=== PATIENT | male | born 1965 ===

== ENCOUNTER 2021-05-11 14:22 | Emergency (ER) | payer OTHER | END 2021-05-11 14:50 | disposition left against medical advice (07) | LOC: DL.ED 14:22 | DX: Z53.21 Procedure and treatment not carried out due to patient leaving prior to being seen by health care provider (principal) ==

== ENCOUNTER 2021-05-18 11:53 | Emergency (ER) | payer OTHER ==
--- NOTE | 2021-05-18 13:02 | EDM.PDOC ---
ED HPI GENERAL MEDICAL PROBLEM - General Chief Complaint: General Stated Complaint: MENTAL HEALTH ISSUES Time Seen by Provider: 05/18/21 12:45 Source of Information: Reports: Patient, RN, RN Notes Reviewed History Limitations: Reports: Uncooperative - History of Present Illness INITIAL COMMENTS - FREE TEXT/NARRATIVE: Darin is a 55 y/o male with a history of PTSD who presents to the ED via personal vehicle at the request of Mariya, social science professor at [facility], for mental health needs. The patient has been pre-approved for acceptance to the [facility] in [place] for psychiatric evaluation and treatment. He denies active suicidality, but displays passive suicidal gestures. He has stopped taking his medications and has refused intervention of a unruptured cer ebral aneurysm; he underwent angiogram with an Dr. Monterroso, interventional neurologist at [facility], on 05/13/21 who recommended coiling. The patient states his PTSD has been "pinging" over the past few days due to the 9 year anniversary of his mothers who passed on 05/16/12. He notes he drinks large volumes of alcohol as frequently as possible, he is unwilling to state when his last drink of alcohol was. Head Pain Score (Numeric/FACES): 10 - Related Data Allergies Allergy/AdvReac Type Severity Reaction Status Date / Time enviromental Allergy Sneezing Uncoded 05/11/21 14:43 Home Meds: Home Meds . [No Known Home Meds] 05/11/21 [History] Past Medical History HEENT History: Reports: Impaired Vision Other HEENT History: wearing glasses Cardiovascular History: Reports: None Psychiatric History: Reports: PTSD - Past Surgical History Other HEENT Surgeries/Procedures: had an anurasym Social & Family History - Tobacco Use Tobacco Use Status *Q: Current Every Day Tobacco User Years of Tobacco use: 44 Packs/Tins Daily: 1 - Caffeine Use Caffeine Use: Reports: Soda - Recreational Drug Use Recreational Drug Use: No ED ROS GENERAL - Review of Systems Review Of Systems: Comprehensive ROS is negative, except as noted in HPI. ED EXAM, GENERAL - Physical Exam Exam: See Below Exam Limited By: No Limitations General Appearance: Alert, No Apparent Distress Eye Exam: Bilateral Eye: EOMI, Normal Inspection, PERRL (3mm) Ears: Normal External Exam, Hearing Grossly Normal Nose: Normal Inspection Throat/Mouth: Normal Voice, No Airway Compromise. No: Normal Inspection, Normal Oropharynx (Dry mucous membranes) Head: Atraumatic, Normocephalic Neck: Normal Inspection, Supple, Non-Tender, Full Range of Motion Respiratory/Chest: No Respiratory Distress, Lungs Clear, Normal Breath Sounds, No Accessory Muscle Use, Chest Non-Tender Cardiovascular: Normal Peripheral Pulses, Regular Rate, Rhythm, No Gallop, No Murmur, No Rub, Tachycardia Peripheral Pulses: 2+: Radial (L), Radial (R) GI/Abdominal: Normal Bowel Sounds, Soft, Non-Tender, No Distention, No Abnormal Bruit, No Mass, Pelvis Stable (Male) Exam: Deferred Rectal (Males) Exam: Deferred Back Exam: Normal Inspection, Full Range of Motion Extremities: Normal Inspection, Normal Range of Motion, Non-Tender, No Pedal Edema, Normal Capillary Refill Neurological: Alert, Oriented, CN II-XII Intact, Normal Cognition, Normal Gait, No Motor/Sensory Deficits, Other (Poor eye-contact) Psychiatric: Normal Mood, Flat Affect Skin Exam: Warm, Dry, Intact, Normal Color, No Rash. No: Cyanosis, Jaundice, Mottled, Pallor Course - Vital Signs Last Recorded V/S: Last Vital Signs Temp 98.9 F 05/18/21 12:32 Pulse 105 H 05/18/21 12:32 Resp 14 05/18/21 12:32 BP 144/96 H 05/18/21 12:32 Pulse Ox 96 05/18/21 12:32 - Orders/Labs/Meds Labs: Laboratory Tests 05/18/21 05/18/21 05/18/21 Range/Units 13:43 13:43 13:43 WBC 8.1 (5.0-10.0) 10^3/uL RBC 4.81 (4.6-6.2) 10^6/uL Hgb 15.2 (14.0-18.0) g/dL Hct 44.7 (40.0-54.0) % MCV 92.9 (80-100) fL MCH 31.6 (27.0-34.0) pg MCHC 34.0 (33.0-35.0) g/dL Plt Count 112 L (150-450) 10^3/uL Neut % (Auto) 50.2 (42.2-75.2) % Lymph % (Auto) 35.7 (20.5-50.1) % [place] % (Auto) 10.8 H (2-8) % Eos % (Auto) 2.7 (1.0-3.0) % Baso % (Auto) 0.6 (0.0-1.0) % Sodium 141 (136-145) mmol/L Potassium 3.6 (3.5-5.1) mmol/L Chloride 103 (98-107) mmol/L Carbon Dioxide 28 (21-32) mmol/L Anion Gap 13.6 H (7-13) mEq/L BUN 6 L (7-18) mg/dL Creatinine 0.84 (0.70-1.30) mg/dL Est Cr Clr Drug Dosing 89.67 mL/min Estimated GFR (MDRD) > 60 BUN/Creatinine Ratio 7.1 (No establ ref range) Glucose 103 H (70-99) mg/dL Calcium 8.7 (8.5-10.1) mg/dL Total Bilirubin 0.9 (0.2-1.0) mg/dL AST 46 H (15-37) U/L ALT 43 (16-63) U/L Alkaline Phosphatase 108 (46-116) U/L Total Protein 8.5 H (6.4-8.2) g/dL Albumin 3.7 (3.4-5.0) g/dL Globulin 4.8 Albumin/Globulin Ratio 0.8 Urine Color (YELLOW) Urine Appearance (CLEAR) Urine pH (5.0-9.0) Ur Specific [place] (1.005-1.030) Urine Protein (NEGATIVE) Urine Glucose (UA) (NEGATIVE) Urine Ketones (NEGATIVE) Urine Occult Blood (NEGATIVE) Urine Nitrite (NEGATIVE) Urine Bilirubin (NEGATIVE) Urine Urobilinogen (0.2-1.0) mg/dL Ur Leukocyte Esterase (NEGATIVE) Salicylates 3.8 (2.8-20(Therapeutic)) mg/dL Urine Opiates Screen (NEGATIVE) Ur Oxycodone Screen (NEGATIVE) Urine Methadone Screen (NEGATIVE) Acetaminophen 0 L (10-30 (Therapeutic)) ug/mL Ur Barbiturates Screen (NEGATIVE) U Tricyclic Antidepress (NEGATIVE) Ur Phencyclidine Scrn (NEGATIVE) Ur Amphetamine Screen (NEGATIVE) U Methamphetamines Scrn (NEGATIVE) Urine MDMA Screen (NEGATIVE) U Benzodiazepines Scrn (NEGATIVE) Urine Cocaine Screen (NEGATIVE) U Marijuana (THC) Screen (NEGATIVE) Ethyl Alcohol 290 (0) mg/dL 05/18/21 05/18/21 Range/Units 13:45 13:45 WBC (5.0-10.0) 10^3/uL RBC (4.6-6.2) 10^6/uL Hgb (14.0-18.0) g/dL Hct (40.0-54.0) % MCV (80-100) fL MCH (27.0-34.0) pg MCHC (33.0-35.0) g/dL Plt Count (150-450) 10^3/uL Neut % (Auto) (42.2-75.2) % Lymph % (Auto) (20.5-50.1) % [place] % (Auto) (2-8) % Eos % (Auto) (1.0-3.0) % Baso % (Auto) (0.0-1.0) % Sodium (136-145) mmol/L Potassium (3.5-5.1) mmol/L Chloride (98-107) mmol/L Carbon Dioxide (21-32) mmol/L Anion Gap (7-13) mEq/L BUN (7-18) mg/dL Creatinine (0.70-1.30) mg/dL Est Cr Clr Drug Dosing mL/min Estimated GFR (MDRD) BUN/Creatinine Ratio (No establ ref range) Glucose (70-99) mg/dL Calcium (8.5-10.1) mg/dL Total Bilirubin (0.2-1.0) mg/dL AST (15-37) U/L ALT (16-63) U/L Alkaline Phosphatase (46-116) U/L Total Protein (6.4-8.2) g/dL Albumin (3.4-5.0) g/dL Globulin Albumin/Globulin Ratio Urine Color Yellow (YELLOW) Urine Appearance Clear (CLEAR) Urine pH 7.0 (5.0-9.0) Ur Specific [place] 1.015 (1.005-1.030) Urine Protein Negative (NEGATIVE) Urine Glucose (UA) Negative (NEGATIVE) Urine Ketones Negative (NEGATIVE) Urine Occult Blood Negative (NEGATIVE) Urine Nitrite Negative (NEGATIVE) Urine Bilirubin Negative (NEGATIVE) Urine Urobilinogen 1.0 (0.2-1.0) mg/dL Ur Leukocyte Esterase Negative (NEGATIVE) Salicylates (2.8-20(Therapeutic)) mg/dL Urine Opiates Screen Negative (NEGATIVE) Ur Oxycodone Screen Negative (NEGATIVE) Urine Methadone Screen Negative (NEGATIVE) Acetaminophen (10-30 (Therapeutic)) ug/mL Ur Barbiturates Screen Negative (NEGATIVE) U Tricyclic Antidepress Negative (NEGATIVE) Ur Phencyclidine Scrn Negative (NEGATIVE) Ur Amphetamine Screen Negative (NEGATIVE) U Methamphetamines Scrn Negative (NEGATIVE) Urine MDMA Screen Negative (NEGATIVE) U Benzodiazepines Scrn Negative (NEGATIVE) Urine Cocaine Screen Negative (NEGATIVE) U Marijuana (THC) Screen Negative (NEGATIVE) Ethyl Alcohol (0) mg/dL - Re-Assessments/Exams Free Text/Narrative Re-Assessment/Exam: 05/18/21 Confirmed patient's cerebral aneurysm with [facility]. Patient is not agreeable to blood, urine, or COVID screen. Mariya from [facility] here to discuss ongoing plan with patient. Patient upset as he is not able to leave the ED to smoke cigarettes. Patient left ED stating he does not require mental health help; he is going to "..stay at a friends." Departure - Departure Time of Disposition: 13:00 Disposition: Against Medical Advice 07 Clinical Impression: History of posttraumatic stress disorder (PTSD), History of cerebral aneurysm, Left against medical advice Acute alcohol intoxication Qualifiers: Complication of substance-induced condition: uncomplicated Qualified Code(s): F10.920 - Alcohol use, unspecified with intoxication, uncomplicated - Discharge Information Forms: ED Department Discharge Sepsis Event Note (ED) - Evaluation Sepsis Screening Result: No Definite Risk - Focused Exam Vital Signs: Vital Signs Temp Pulse Resp BP Pulse Ox 05/18/21 12:32 98.9 F 105 H 14 144/96 H 96
[2021-05-18 14:14] LABS: ANION GAP 13.6 mEq/L (7-13); CHLORIDE,CL 103 mmol/L (98-107); SODIUM,NA 141 mmol/L (136-145)
[2021-05-18 14:15] LABS: ACETAMINOPHEN 0 ug/mL (10-30 (Therapeutic))
[2021-05-18 15:22] LABS: AMPHETAMINES,URINE NEGATIVE (NEGATIVE); BARBITURATES,URINE NEGATIVE (NEGATIVE); BENZODIAZEPINE,URINE NEGATIVE (NEGATIVE); MDMA (ECSTASY), URINE NEGATIVE (NEGATIVE); METHADONE,URINE NEGATIVE (NEGATIVE); METHAMPHETAMINES,URINE NEGATIVE (NEGATIVE); OPIATES,URINE NEGATIVE (NEGATIVE); OXYCODONE,URINE NEGATIVE (NEGATIVE); PHENCYCLIDINE,URINE NEGATIVE (NEGATIVE); TCA,URINE NEGATIVE (NEGATIVE)
== END 2021-05-18 15:40 | disposition left against medical advice (07) ==
LOC: DL.ED 11:53
DX: F10.129 Alcohol abuse with intoxication, unspecified (principal); F43.10 Post-traumatic stress disorder, unspecified; Z91.09 Other allergy status, other than to drugs and biological substances; Z72.0 Tobacco use; Y90.8 Blood alcohol level of 240 mg/100 ml or more; Z86.79 Personal history of other diseases of the circulatory system
CPT/HCPCS: 36415; 80053; 80143; 80179; 80305-QW; 80307; 81003; 85025; 99284

== ENCOUNTER 2022-05-19 14:43 | Inpatient (IN) | payer OTHER ==
[2022-05-19 16:52] LABS: ANION GAP 16.6 mEq/L (7-13); CHLORIDE,CL 102 mmol/L (98-107); SODIUM,NA 137 mmol/L (136-145)
[2022-05-19 17:10] LABS: ACETAMINOPHEN 0 ug/mL (10-30 (Therapeutic)); ESTIMATED GFR 49 mL/min (>=60)
[2022-05-19] MEDS ORDERED: Octreotide 100 MCG/ML SDV IVPUSH ONE (17:18)
[2022-05-19 17:26] LABS: CORONAVIRUS COVID-19 NAA NEGATIVE (NEGATIVE)
[2022-05-19] MEDS: Pantoprazole 40 MG in Sodium Chloride 0.9% 100 ML IV SCH ×2 (17:55→23:08)
[2022-05-19] MEDS: Octreotide 100 MCG in Sodium Chloride 0.9% 99 ML IV SCH ×3 (18:15→23:10)
[2022-05-19] MEDS ORDERED: Albuterol/Ipratropium 3.0-0.5 MG/3 ML Neb Soln NEB PRN (21:37)
[2022-05-19] MEDS ORDERED: Ondansetron 4 MG/2 ML SDV IVPUSH PRN (21:37)
[2022-05-19] MEDS ORDERED: HYDROmorphone 0.5 MG/0.5 ML Syringe IVPUSH PRN (21:37)
[2022-05-19] MEDS ORDERED: traZODone 50 MG Tab PO ONE (22:01)
[2022-05-19] MEDS ORDERED: LORazepam 2 MG/ML SDV IVPUSH ONE (22:01)
[2022-05-19] MEDS: Propranolol 20 MG Tab PO SCH (22:21)
[2022-05-19] MEDS: Nitroglycerin 2% Oint 1 GM UD Packet TOP SCH (22:22)
[2022-05-19] MEDS ORDERED: Phytonadione 10 MG in Sodium Chloride 0.9% 50 ML IV ONE (23:32)
[2022-05-20] MEDS: Albumin Human 25 GM in Premix Bag 1 BAG IV SCH ×3 (00:09→12:38)
[2022-05-20] MEDS ORDERED: Menthol 10%/Methyl Salicylate 15% 85 GM Tube TOP PRN (00:36)
[2022-05-20] MEDS: Octreotide 100 MCG in Sodium Chloride 0.9% 99 ML IV SCH ×4 (01:44→08:47)
[2022-05-20] MEDS ORDERED: MVI, Adult with Vitamin K 10 ML, Folic Acid 1 MG, Thiamine 100 MG in Lactated Ringers 1... IV ONE ×4 (02:00)
[2022-05-20] MEDS: Propranolol 20 MG Tab PO SCH ×2 (02:59→10:54)
[2022-05-20] MEDS ORDERED: Vasopressin 20 Units/1 ML MDV ONE (05:27)
[2022-05-20] MEDS: Nitroglycerin 2% Oint 1 GM UD Packet TOP SCH (05:41)
[2022-05-20] MEDS ORDERED: Norepinephrine 4 MG in Dextrose 5% in Water 246 ML IV SCH ×2 (05:45)
[2022-05-20] MEDS ORDERED: Phytonadione 5 MG in Sodium Chloride 0.9% 50 ML IV SCH (09:00)
[2022-05-20] MEDS ORDERED: LORazepam 2 MG/ML SDV IVPUSH ONE ×2 (09:33)
[2022-05-20] MEDS ORDERED: LORazepam 2 MG/ML SDV IVPUSH PRN ×2 (11:01→11:08)
[2022-05-20] MEDS ORDERED: Scopolamine 1.5 MG Transdermal Patch TOP ONE (11:02)
[2022-05-20] MEDS ORDERED: Morphine 4 MG/ML Syringe IVPUSH PRN (11:10)
[2022-05-20] MEDS: Atropine 1% Ophth Soln 5 ML BOTTLE SL SCH ×7 (11:35→23:29)
[2022-05-20] MEDS ORDERED: Morphine 10 MG/ML SDV IVPUSH PRN (16:37)
[2022-05-20] MEDS ORDERED: Morphine 4 MG/ML Syringe ONE (17:34)
[2022-05-20] MEDS: Morphine 4 MG/ML Syringe IVPUSH PRN ×2 (17:41→22:17)
[2022-05-20] MEDS: LORazepam 2 MG/ML SDV IVPUSH PRN ×2 (19:15→23:30)
[2022-05-20] MEDS ORDERED: Thiamine 100 MG Tab PO SCH (21:00)
[2022-05-20] MEDS ORDERED: Folic Acid 1 MG Tab PO SCH (21:00)
[2022-05-20] MEDS ORDERED: Multivitamins with Iron/Calcium/Folic Acid/Minerals Tab PO SCH (21:00)
[2022-05-21] MEDS: Atropine 1% Ophth Soln 5 ML BOTTLE SL SCH ×12 (01:36→23:15)
[2022-05-21] MEDS: Morphine 4 MG/ML Syringe IVPUSH PRN ×4 (03:35→22:06)
[2022-05-21] MEDS: LORazepam 2 MG/ML SDV IVPUSH PRN (19:47)
[2022-05-22] MEDS: Atropine 1% Ophth Soln 5 ML BOTTLE SL SCH ×8 (01:15→15:05)
[2022-05-22] MEDS: LORazepam 2 MG/ML SDV IVPUSH PRN ×2 (02:09→14:18)
[2022-05-22] MEDS: Morphine 4 MG/ML Syringe IVPUSH PRN ×2 (05:19→10:13)
== END 2022-05-22 18:10 | disposition expired | DRG 441 ==
LOC: DL.ED 14:43 → DL.MS 17:47
PROVIDERS: ADMIT Internal Medicine; ATTEND Internal Medicine
PROC: 30233N1 Transfusion of Nonautologous Red Blood Cells into Peripheral Vein, Percutaneous Approach (ICD-10-PCS; principal; 2022-05-19)
PROC: 30233K1 Transfusion of Nonautologous Frozen Plasma into Peripheral Vein, Percutaneous Approach (ICD-10-PCS; 2022-05-20)
PROC: 3E033XZ Introduction of Vasopressor into Peripheral Vein, Percutaneous Approach (ICD-10-PCS; 2022-05-20)
DX: K72.00 Acute and subacute hepatic failure without coma (principal); E43 Unspecified severe protein-calorie malnutrition; G93.41 Metabolic encephalopathy; I85.01 Esophageal varices with bleeding; K85.90 Acute pancreatitis without necrosis or infection, unspecified; D68.9 Coagulation defect, unspecified; N17.9 Acute kidney failure, unspecified; Z66 Do not resuscitate; Z20.822 Contact with and (suspected) exposure to COVID-19; Z51.5 Encounter for palliative care; D64.9 Anemia, unspecified; K72.10 Chronic hepatic failure without coma; R73.9 Hyperglycemia, unspecified; E88.09 Other disorders of plasma-protein metabolism, not elsewhere classified; E66.9 Obesity, unspecified; F17.210 Nicotine dependence, cigarettes, uncomplicated; H54.7 Unspecified visual loss; F43.10 Post-traumatic stress disorder, unspecified; K70.30 Alcoholic cirrhosis of liver without ascites; Z68.36 Body mass index [BMI] 36.0-36.9, adult; Z91.09 Other allergy status, other than to drugs and biological substances; Z88.8 Allergy status to other drugs, medicaments and biological substances; Z28.9 Immunization not carried out for unspecified reason
CPT/HCPCS: 0240U; 36415; 36430; 51702; 80053; 80143; 80179; 80307; 81001; 82140; 82150; 82272; 83605; 83690; 83735; 85025; 85610; 86850; 86900; 86901; 86920; 86922; 96365; 96375; 99284-25; A9270-GY; C9113; J2060; J2270; J2354-JA; J2405; J3411; J3430; J3490; J7060; J7120; P9016; P9017; P9047